=== PATIENT | male | born 1985 | race Two or more races ===

== ENCOUNTER 2024-12-28 09:39 | Emergency (ER) | payer OTHER ==
[~2024-12-28] VITALS: Ht 185.4 cm; Wt 98.1 kg
--- NOTE | 2024-12-28 11:29 | ED.PDOC ---
Musculoskeletal HPI Comments jose tenorio: Right middle finger injury minimal swelling minimal focal tenderness to palpation. Full range of motion. Patient is neurovascularly intact in the affected hand. Denies any other symptoms. Normal exam HPI: Poor Historian. 39-year-old male presents to emergency depart for evaluation of right middle finger injury after playing bowling he hit the floor with a ball and still in his hand. Patient complains of focal point tenderness. Has normal full range of motion of the affected fingers and hand. Patient is neurovascularly intact in the affected extremity. Radial pulses palpable. Good muscle strength. Patient has focal tenderness to palpation above the base of the 3rd digit of the right hand with minimal swelling. Patient has been wearing an aluminum splint for support. Past Medical History: denies Past Surgical History: denies REVIEW OF SYSTEMS: CONSTITUTIONAL: Denies acute: fever, diaphoresis, chills, generalized weakness. HEAD: Denies acute: headache, photophobia Eyes: Denies acute: Double vision, vision loss, eye pain, eye discharge. EARS: Denies acute: tinnitus, hearing loss, ear discharge, ear pain, THROAT: Denies acute: sore throat, swelling, difficulty swallowing , pain with swallowing, change in voice. NECK: Denies acute: neck pain, neck swelling, stiff neck. HEART: Denies acute : chest pain, palpitations, LUNGS: Denies acute: SOB, wheezing, cough, hemoptysis ABDOMEN: Denies acute: abdominal pain, Nausea, Vomiting, diarrhea, melena , hematemesis, hematochezia SKIN: Denies acute: rash, redness, lesions, itchiness. EXTREMITIES: Denies acute: calf pain, numbness, tingling, weakness, Denies acute: Low back pain. Neuro: Denies acute: focal neurological deficit, motor or sensory focal neurological deficit, tremors, seizure like activity, confusion, dizziness, change in mental status, loss of bowel or bladder function, cauda equina like symptoms. : Denies acute: dysuria, hematuria, flank pain, increase in urinary frequency. PSYCH: Denies acute: hallucination, suicidal ideation, homicidal ideation. PHYSICAL EXAM: General: ----no----acute distress, awake and alert. Head: normocephalic, atraumatic. Neck: supple, trachea is midline, no swelling. Throat: Normal phonation. Eyes:, no erythema, no purulent discharge, no proptosis, no icterus. Heart: regular rate, regular rhythm, no significant murmur appreciated. Lungs: no apparent respiratory distress, Able to speak in full sentences. No wheezing, no rhonchi, no crackles. No stridors Clear to auscultation bilaterally. Abdomen: non tender to palpation, non distended, soft, no guarding, no rebound, + bowel sounds. Neuro: Awake, Alert, oriented to name, self, situation, follows commands GCS=15. Speech is normal. Skin: no petechia, no purpura, no cyanosis, non-pale, not jaundice. Lower extremities: --no - Pitting edema no deformity, no focal swelling, no calf TTP. Makes eye contact. moves all four extremities. Face: no apparent facial droop. Ambulating in the ED independently. ED COURSE: DISCLAIMER: This medical document was created using an electronic medical record system with voice recognition software and computerized dictation system. Although this document has been carefully reviewed, there might still be some phonetic and typographical errors. Occasional wrong-word or "sound-alike" substitutions may have occurred due to the inherent limitations of voice recognition software. These areas are purely typographical due to imperfections of the software programs and do not reflect any compromise in the patient's medical care. Please read the chart carefully and recognize, using context, where these substitutions have occurred. Chief Complaint: Upper Extremity Time Seen by MD: 10:21 Reviewed Notes: Medications, Allergies Allergies: Coded Allergies: NO KNOWN ALLERGIES (Unverified , 12/28/24) Information Source: Patient Mode of Arrival: Ambulatory Location: Right Was a procedure done? Was a procedure done?: No Differential Diagnosis EXT Differential Diagnosis: Deep Vein Thrombosis, Compartment Syndrome, Fracture, Sprain, Dislocation, DJD, Contusion, Strain, Neurovascular injury, Arthritis, Bursitis X-Ray, Labs, Meds, VS Vital Signs Date Time Temp Pulse Resp B/P (MAP) Pulse Ox O2 Delivery O2 Flow Rate FiO2 12/28/24 13:32 72 20 98 Room Air 12/28/24 13:32 98.0 72 20 118/64 (82) 98 98.0 12/28/24 09:41 98.0 74 18 123/74 (90) [address] [address] Ph: [phone] DIAGNOSTIC IMAGING Diagnostic Imaging Report : [id number] Signed PATIENT: JOSE TENORIO ACCT: [id number] UNIT: [id number] : 1985 LOC: ER ROOM / BED: / AGE / SEX: 39 / M ADM STATUS: REG ER SERVICE [id number] ORDERING PHYSICIAN: JAIME MANZANO DO PROCEDURE(s): RHAN - R HAND 3 VIEW XRAY REASON: injury ORDER NUMBER(s): [id number], ACCESSION NUMBER(s): [id number] EXAM: XR Right Hand Complete, 3 or More Views CLINICAL INDICATION: injury TECHNIQUE: Frontal, lateral and oblique views of the right hand. COMPARISON: None FINDINGS: BONES/JOINTS: See below. SOFT TISSUES: Soft tissue swelling without acute fracture. No radiopaque foreign body. OTHER FINDINGS: . IMPRESSION: 1. Soft tissue swelling without acute fracture. 2. If symptoms persist, further evaluation with CT is recommended. ATED BY: NYDIA LUX MD DICTATED DATE/TIME: 12/28/241228 SIGNED BY: NYDIA LUX MD SIGNED DATE/TIME: 12/28/241228 CC: Time of 1ST Reevaluation: 10:51 Reevaluation 1ST: Unchanged Patient Education/Counseling: Diagnosis, Treatment Family Education/Counseling: No Family Present Comments Patient presented with the above HPI.--finger injury----workup was initiated. patient was found with the above mentioned diagnosis. the following medications were ordered: please refer to order lists of meds and tests obtained by myself Dr. Manzano. Patient ED course and VS have been stabilized. Patient has been reassessed in the ED and remained in a stable condition. Pertinent incidental findings were discussed with the patient and/or family. Patient/family voices understanding and is agreeable with plan. Patient has been observed in the ED adequate length of time to insure improvement/stability. Escalation of care considered: Consideration of escalation to observation or admission Patient was DISCHARGED home in a stable condition. All the reports of any imaging studies that were ordered by myself were reviewed by myself. Departure 1 Departure Time of Disposition: 13:14 Impression: Primary Impression: Pain in finger of right hand Disposition: HOME / SELF CARE / HOMELESS Condition: Stable Additional Instructions: Additional instructions: You MUST follow-up with your primary care/family doctor in 1 to 2 days. If you are unable to see your primary care/family doctor, please return to our emergency room for re-assessment and re-evaluation in 1 to 2 days. Return to the emergency room here in our facility or to the nearest ER [facility] if your symptoms change or worsen. CONSULTATIONS: you MUST Follow-up for consultation as soon as possible with: -follow up with the orthopedic doctor in 1-2 days. Please call for appointment. You MUST call the consultants office yourself to make an appointment. You may need to arrange that through your insurance and/or your primary/family doctor. If you are unable to see the product safety consultant in 1 to 2 days, you must return to our emergency room (or any other ER of your choice) for re-assessment and re- evaluation. Adequate fluid hydration. Continue applying the aluminum splint. Use [id number] pain medications as needed. Discharged With: Self Critical Care Note Critical Care Time?: No I personally scribed for JAIME MANZANO DO ([email or web address]) on 12/28/24 at 11:29. Electronically submitted by Deon Bob ([email or web address]). I personally scribed for JAIME MANZANO DO ([email or web address]) on 12/28/24 at 14:04. Electronically submitted by Deon Bob ([email or web address]). I personally scribed for JAIME MANZANO DO ([email or web address]) on 12/28/24 at 21:08. Electronically submitted by Deon Bob ([email or web address]). JAIME MANZANO DO Dec 28, 2024 11:29
--- NOTE | 2024-12-28 12:32 | DVH ---
EXAM: XR Right Hand Complete, 3 or More Views CLINICAL INDICATION: injury TECHNIQUE: Frontal, lateral and oblique views of the right hand. COMPARISON: None FINDINGS: BONES/JOINTS: See below. SOFT TISSUES: Soft tissue swelling without acute fracture. No radiopaque foreign body. OTHER FINDINGS: . IMPRESSION: 1. Soft tissue swelling without acute fracture. 2. If symptoms persist, further evaluation with CT is recommended.
[2024-12-28 13:32] VITALS: BP 118/64; PULSE 72; RESP 20; TEMP 98; O2SAT 98
== END 2024-12-28 14:22 | disposition home or self-care (01) ==
LOC: ER 09:45
DX: M79.644 Pain in right finger(s) (principal)
CPT/HCPCS: 73130